=== PATIENT | female | born 1945 | race Caucasian/White ===

== ENCOUNTER → 2016-11-15 | Emergency (ER) | payer MEDICARE ==
[~2016-11-15] VITALS: Ht 165.1 cm; Wt 104.3 kg
[~2016-11-15] MED LIST: ACCUPRIL40 M1 PO; AMARYL2 MG PO; ATENOLOL50 M1 PO; ATIVAN1 MG PO; CITALOPRAM HYDR20 MG PO; COUMADIN5 M2 PO; DUONEB 3 MG/3 ML3 M1 INH; FLONASE ALLERG9.9 ML NAS; GLUCOPHAGE1000 MG PO; LASIX40 MG PO; PREDNISONE10 MG PO; REMERON15 M2 PO; ROBITUSSIN AC 110 ML PO; ZEGERID PO; ZOCOR20 MG PO
[2016-11-15 11:33] VITALS: BP 148/76
[2016-11-15 12:22] LABS: BASO # 0.1 10*3/uL (0.0-0.1); BASO % 0.5 % (0.0-1.0); EOS # 0.1 10*3/uL (0.0-0.4); EOS % 0.6 % (1.0-4.0); HEMATOCRIT 35.6 % (37.0-47.0); HEMOGLOBIN 11.7 g/dl (12.0-16.0); LYMPH # 0.9 10*3/uL (1.3-4.4); LYMPH % 8.8 % (27.0-41.0); MEAN CORPUSCULAR HGB CONC 32.9 g/dl (33.0-37.0); MEAN PLATELET VOLUME 10.1 fl (9.6-12.3); MONO # 0.7 10*3/uL (0.1-1.0); MONO % 6.5 % (3.0-9.0); NEUT # 8.7 10*3/uL (2.3-7.9); NEUT % 83.2 % (47.0-73.0); PLATELET COUNT AUTOMATED 245 10*3/uL (130-400); RED BLOOD COUNT 4.34 10*6/uL (4.10-5.10); RED CELL DISTRI WIDTH 13.1 % (0-14.5); WHITE BLOOD COUNT 10.4 10*3/uL (4.8-10.8)
[2016-11-15 12:29] LABS: INTERNATIONAL NORM RATIO 1.5 (2.0-3.5); PROTHROMBIN TIME 16.1 SECONDS (9.0-12.4)
[2016-11-15 12:46] LABS: ALBUMIN 3.4 gm/dl (3.1-4.5); ALKALINE PHOSPHATASE 80 U/L (45-117); BILIRUBIN, TOTAL 0.4 mg/dl (0.2-1.0); BUN 15 mg/dl (7-24); CARBON DIOXIDE 29 mmol/L (21-32); CHLORIDE 100 mmol/L (98-107); EST GLOM FILT AFRICAN AMERICAN > 60 ml/min; GLUCOSE 243 mg/dL (65-99); MAGNESIUM 1.3 mg/dL (1.5-2.1); POTASSIUM 3.6 mmol/L (3.5-5.1); SGOT/AST 18 IU/L (3-35); SGPT/ALT 25 U/L (12-78); SODIUM 139 mmol/L (136-145); TOTAL PROTEIN 7.9 gm/dL (6.4-8.2)
[2016-11-15 12:53] LABS: TROPONIN I < 0.015 ng/ml (<0.045)
[2016-11-15 14:18] LABS: LA>2 REFLEX 2 HR DRAW NOW
== END ==
LOC: ED 11:33
PROVIDERS: Nurse Practitioner Family
DX: J20.9 Acute bronchitis, unspecified (principal); R03.0 Elevated blood-pressure reading, without diagnosis of hypertension; Z88.1 Allergy status to other antibiotic agents; Z79.899 Other long term (current) drug therapy; Z79.02 Long term (current) use of antithrombotics/antiplatelets

== ENCOUNTER 2018-05-08 08:45 | Inpatient (IN) | payer MEDICARE ==
[2018-05-08] VITALS (8 sets, daily range): BP systolic 147–177; BP diastolic 74–103
[~2018-05-08] VITALS: Ht 165.1 cm; Wt 95.5 kg
--- NOTE | ~2018-05-08 | EKG ---
[place], [place] ELECTROCARDIOGRAM REPORT NAME: KATINA JHA UNIT #: [id number] ROOM: 532 DOCTOR: AUSTIN DRAFT REPORT BIRTHDATE: [birth year] [facility] Test Date: 2018-05-08 Test Time: 09:02:10 Pat Name: KATINA JHA Department: Room: 532 Gender: F Painter: : 1945 Requested By: LYUDMILA SPARKS Order Number: [id number] Reading MD: Itzel Polk MD Measurements Intervals Harris Rate: 92 P: KS: QRS: 46 QRSD: 95 T: 18 QT: 390 QTc: 483 Interpretive Statements Atrial fibrillation Ventricular premature complex Electronically Signed On 05-11-2018 11:08:54 PDT by Itzel Polk MD CM:EKGRPT:ELECTROCARDIOGRAM REPORT [id number] LYUDMILA AVILA DRAFT REPORT LYUDMILA SPARKS M.D.
--- NOTE | ~2018-05-08 | CON ---
[place], [place] REPORT OF CONSULTATION NAME: KATINA JHA UNIT #: [id number] ROOM: 532 DOCTOR: PHD ESTEPHANIE CARLOS BIRTHDATE: [birth year] DOS: 05/09/2018 HISTORY OF PRESENT ILLNESS: The patient is a 73-year-old female referred by the hospitalist with concerns for depression. The patient has been providing care for her brother to the detriment of her physical and emotional health. She reportedly had not been taking her medications for some time. She has a history of depression and anxiety and is prescribed Celexa and Vistaril by her primary care doctor. She has been a for the past 31 years and has 2 children. She worked as a pharmacy intake technician for many years and gave up her license 4 years ago. 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 She denied alcohol, tobacco and illegal drug use. PAST MEDICAL HISTORY: Atrial fibrillation, coronary artery disease, diabetes, GERD, hyperlipidemia, hypertension, obstructive sleep apnea. MEDICATIONS: Coumadin, Celexa, Zestril, Tenormin, Prilosec, Zocor, Humalog, Vistaril. The patient was awake, alert and oriented to person, place and time. Mood was depressed without suicidal ideation. She firmly denied a desire for , stating she has "too much to live for" with her children and grandchildren. Affect was restricted in range. She participated in counseling in the past and found that to be helpful. She is open to participating in counseling again and thinks it might be helpful to provide cognitive, behavioral and supportive therapy interventions. She stated that she does not believe her current medication regimen is working. Discussed her case with Dr. Babcock who recommended stopping Vistaril and Celexa and starting Remeron 15 mg. Discussed the patient's role as caregiver with her brother. She stated that she spoke with clinical social work aide who instructed her on how to transition her brother to a mcc, so that she is not his primary wedding makeup artist any longer. She feels at peace with this plan and believes that her mood will improve significantly once her role in the family has changed. Both of her children are supportive of her in this decision and are helping as well to transition the patient's brother to a mcc. DIAGNOSIS: Major depressive disorder, recurrent, unspecified. RECOMMENDATIONS: 1. Outpatient counseling. The patient stated she would be open to following up with me on an outpatient basis. 2. As per Dr. Babcock, stop Vistaril and Celexa and start Remeron 15 mg. Thank you very much for this consult. [place], [place] REPORT OF CONSULTATION NAME: KATINA JHA UNIT #: [id number] ROOM: 532 DOCTOR: ESTEPHANIE, PHD CARLOS BIRTHDATE: [birth year] Carmina Dhaliwal, PhD CM:CONSTR:REPORT OF CONSULTATION 1700 05/10/18 0532 interface
[~2018-05-08 08:45] MED LIST changes: +CELEXA40 MG PO; -CITALOPRAM HYDR20 MG PO; -COUMADIN5 M2 PO; +COUMADIN6 M2 PO
[2018-05-08 09:13] LABS: BASO # 0.1 10*3/uL (0.0-0.1); BASO % 0.7 % (0.0-1.0); EOS # 0.1 10*3/uL (0.0-0.4); EOS % 1.1 % (1.0-4.0); HEMATOCRIT 34.6 % (37.0-47.0); LYMPH # 1.9 10*3/uL (1.3-4.4); LYMPH % 25.2 % (27.0-41.0); MEAN CELL VOLUME 84.6 fl (81.0-99.0); MEAN CORPUSCULAR HGB 26.9 pg (27.0-31.0); MEAN CORPUSCULAR HGB CONC 31.8 g/dl (33.0-37.0); MEAN PLATELET VOLUME 10.5 fl (9.6-12.3); MONO # 0.6 10*3/uL (0.1-1.0); MONO % 7.6 % (3.0-9.0); NEUT # 4.9 10*3/uL (2.3-7.9); NEUT % 65.1 % (47.0-73.0); PLATELET COUNT AUTOMATED 268 10*3/uL (130-400); RED BLOOD COUNT 4.09 10*6/uL (4.10-5.10); RED CELL DISTRI WIDTH 13.9 % (0-14.5); WHITE BLOOD COUNT 7.5 10*3/uL (4.8-10.8)
[2018-05-08 09:25] LABS: ACT PARTIAL THROMBO TIME 26.1 SECONDS (20.8-31.5); INTERNATIONAL NORM RATIO 1.5 (2.0-3.5)
[2018-05-08 09:36] LABS: ALBUMIN 3.3 gm/dl (3.1-4.5); ALKALINE PHOSPHATASE 73 U/L (45-117); BUN 17 mg/dl (7-24); CHLORIDE 103 mmol/L (98-107); POTASSIUM 4.4 mmol/L (3.5-5.1); SGOT/AST 18 IU/L (3-35); SGPT/ALT 21 U/L (12-78); SODIUM 139 mmol/L (136-145); TOTAL PROTEIN 7.4 gm/dL (6.4-8.2)
[2018-05-08 09:37] LABS: TROPONIN I < 0.015 ng/ml (<0.045)
[2018-05-08] MEDS ORDERED: JANUVIA50 MG PO (11:46)
[2018-05-08] MEDS ORDERED: COUMADIN1 M1 PO (14:10)
[2018-05-08] MEDS ORDERED: ZEGERID 20 MG1 EACH PO (14:11)
[2018-05-08] MEDS ORDERED: PROAIR HFA8.5 GM INH (14:15)
[2018-05-08] MEDS ORDERED: HYDROXYZINE HCL25 MG PO (14:18)
[2018-05-08] MEDS ORDERED: VITAMIN D50000 UNIT PO (14:20)
[2018-05-09] VITALS: BP 150/65
[2018-05-09 06:34] LABS: BASO % 0.5 % (0.0-1.0); EOS # 0.1 10*3/uL (0.0-0.4); EOS % 1.5 % (1.0-4.0); HEMOGLOBIN 11.5 g/dl (12.0-16.0); LYMPH # 1.6 10*3/uL (1.3-4.4); LYMPH % 22.2 % (27.0-41.0); MEAN CELL VOLUME 84.9 fl (81.0-99.0); MEAN CORPUSCULAR HGB 26.4 pg (27.0-31.0); MEAN CORPUSCULAR HGB CONC 31.1 g/dl (33.0-37.0); MEAN PLATELET VOLUME 10.4 fl (9.6-12.3); MONO # 0.6 10*3/uL (0.1-1.0); MONO % 8.5 % (3.0-9.0); NEUT % 67.2 % (47.0-73.0); PLATELET COUNT AUTOMATED 262 10*3/uL (130-400); RED BLOOD COUNT 4.36 10*6/uL (4.10-5.10); RED CELL DISTRI WIDTH 13.9 % (0-14.5); WHITE BLOOD COUNT 7.4 10*3/uL (4.8-10.8)
[2018-05-09 06:48] LABS: ALBUMIN 3.4 gm/dl (3.1-4.5); ALKALINE PHOSPHATASE 74 U/L (45-117); BUN 20 mg/dl (7-24); CHLORIDE 98 mmol/L (98-107); CHOLESTEROL 167 mg/dL (<200); CREATININE 1.02 mg/dL (0.55-1.02); FREE T4 1.21 ng/dl (0.76-1.46); HDL CHOLESTEROL 36 mg/dl (40-60); LDL CHOLESTEROL 97 mg/dL (9-159); POTASSIUM 3.5 mmol/L (3.5-5.1); SGOT/AST 9 IU/L (3-35); SGPT/ALT 17 U/L (12-78); SODIUM 138 mmol/L (136-145); TOTAL PROTEIN 7.5 gm/dL (6.4-8.2); TRIGLYCERIDES 172 mg/dl (<150); VLDL CHOLESTEROL 34 mg/dL (6-40)
[2018-05-09 07:02] LABS: INTERNATIONAL NORM RATIO 1.5 (2.0-3.5)
[2018-05-09 07:23] LABS: VITAMIN D, 25-HYDROXY 48.4 ng/mL (30-100)
[2018-05-09 08:10] VITALS: BP 142/74
[2018-05-09 12:00] VITALS: BP 142/59
[2018-05-09 16:00] VITALS: BP 151/69
[2018-05-09 20:00] VITALS: BP 125/62
[2018-05-10] VITALS: BP 140/61
[2018-05-10 06:12] LABS: BASO # 0.1 10*3/uL (0.0-0.1); BASO % 0.5 % (0.0-1.0); EOS # 0.1 10*3/uL (0.0-0.4); EOS % 0.8 % (1.0-4.0); HEMATOCRIT 40.4 % (37.0-47.0); HEMOGLOBIN 12.6 g/dl (12.0-16.0); LYMPH # 2.3 10*3/uL (1.3-4.4); MEAN CELL VOLUME 85.1 fl (81.0-99.0); MEAN CORPUSCULAR HGB 26.5 pg (27.0-31.0); MEAN CORPUSCULAR HGB CONC 31.2 g/dl (33.0-37.0); MEAN PLATELET VOLUME 10.1 fl (9.6-12.3); MONO # 0.9 10*3/uL (0.1-1.0); MONO % 8.7 % (3.0-9.0); NEUT # 7.2 10*3/uL (2.3-7.9); NEUT % 67.6 % (47.0-73.0); PLATELET COUNT AUTOMATED 320 10*3/uL (130-400); RED BLOOD COUNT 4.75 10*6/uL (4.10-5.10); RED CELL DISTRI WIDTH 13.9 % (0-14.5); WHITE BLOOD COUNT 10.6 10*3/uL (4.8-10.8)
[2018-05-10 06:39] LABS: ALBUMIN 3.7 gm/dl (3.1-4.5); CREATININE 1.12 mg/dL (0.55-1.02); POTASSIUM 3.6 mmol/L (3.5-5.1)
[2018-05-10 06:41] LABS: TOTAL PROTEIN 8.3 gm/dL (6.4-8.2)
[2018-05-10 06:47] LABS: INTERNATIONAL NORM RATIO 1.4 (2.0-3.5)
[2018-05-10 08:00] VITALS: BP 150/72
[2018-05-10] MEDS ORDERED: TOPROL XL50 M1 PO (12:01)
[2018-05-10] MEDS ORDERED: MIRTAZAPINE15 M2 PO (12:01)
[2018-05-10] MEDS ORDERED: ALDACTONE25 MG PO (12:01)
== END 2018-05-10 14:39 | disposition home or self-care (01) | DRG 291 ==
LOC: ED 08:45 → EDHOLD 12:12 → 5E 12:12
PROVIDERS: Emergency Medicine; Internal Medicine
DX: I11.0 Hypertensive heart disease with heart failure (principal); J96.01 Acute respiratory failure with hypoxia; R65.10 Systemic inflammatory response syndrome (SIRS) of non-infectious origin without acute organ dysfunction; F33.9 Major depressive disorder, recurrent, unspecified; I50.33 Acute on chronic diastolic (congestive) heart failure; R79.1 Abnormal coagulation profile; R00.0 Tachycardia, unspecified; D64.9 Anemia, unspecified; D72.810 Lymphocytopenia; E78.5 Hyperlipidemia, unspecified; E11.65 Type 2 diabetes mellitus with hyperglycemia; I48.2 Chronic atrial fibrillation; I25.10 Atherosclerotic heart disease of native coronary artery without angina pectoris; F41.9 Anxiety disorder, unspecified; G47.33 Obstructive sleep apnea (adult) (pediatric); K21.9 Gastro-esophageal reflux disease without esophagitis; I34.0 Nonrheumatic mitral (valve) insufficiency; Z88.2 Allergy status to sulfonamides; Z88.8 Allergy status to other drugs, medicaments and biological substances; Z79.899 Other long term (current) drug therapy; Z90.710 Acquired absence of both cervix and uterus; Z82.49 Family history of ischemic heart disease and other diseases of the circulatory system; Z82.3 Family history of stroke; Z83.3 Family history of diabetes mellitus; Z79.01 Long term (current) use of anticoagulants; Z80.1 Family history of malignant neoplasm of trachea, bronchus and lung; Z99.81 Dependence on supplemental oxygen

== ENCOUNTER → 2018-05-14 | Outpatient (CLI) | payer MEDICARE ==
[~2018-05-14] MED LIST changes: +ALDACTONE25 MG PO; +COUMADIN1 M1 PO; +HYDROXYZINE HCL25 MG PO; +JANUVIA50 MG PO; +MIRTAZAPINE15 M2 PO; +PROAIR HFA8.5 GM INH; +TOPROL XL50 M1 PO; +VITAMIN D50000 UNIT PO; +ZEGERID 20 MG1 EACH PO
[2018-05-14 08:53] LABS: INTERNATIONAL NORM RATIO 1.9 (2.0-3.5)
== END | disposition home or self-care (01) ==
LOC: LAB 07:07
PROVIDERS: Emergency Medicine
DX: Z51.81 Encounter for therapeutic drug level monitoring (principal); Z79.01 Long term (current) use of anticoagulants

== ENCOUNTER 2020-11-05 10:14 | Observation (INO) | payer MEDICARE ==
[~2020-11-05] VITALS: Ht 165.1 cm; Wt 97.1 kg
[2020-11-05 10:23] VITALS: BP 127/47
[2020-11-05 10:51] LABS: BASO # 0.1 10*3/uL (0.0-0.1); BASO % 0.5 % (0.0-1.0); EOS # 0.1 10*3/uL (0.0-0.4); EOS % 0.5 % (1.0-4.0); HEMATOCRIT 35.6 % (37.0-47.0); LYMPH # 1.7 10*3/uL (1.3-4.4); LYMPH % 14.1 % (27.0-41.0); MEAN CELL VOLUME 81.8 fl (81.0-99.0); MEAN CORPUSCULAR HGB 25.1 pg (27.0-31.0); MEAN CORPUSCULAR HGB CONC 30.6 g/dl (33.0-37.0); MEAN PLATELET VOLUME 10.8 fl (9.6-12.3); MONO # 0.7 10*3/uL (0.1-1.0); MONO % 5.6 % (3.0-9.0); NEUT # 9.3 10*3/uL (2.3-7.9); NEUT % 79.1 % (47.0-73.0); PLATELET COUNT AUTOMATED 316 10*3/uL (130-400); RED BLOOD COUNT 4.35 10*6/uL (4.10-5.10); RED CELL DISTRI WIDTH 13.2 % (0-14.5); WHITE BLOOD COUNT 11.8 10*3/uL (4.8-10.8)
[2020-11-05 11:02] LABS: ACT PARTIAL THROMBO TIME 25.1 SECONDS (20.0-32.1)
[2020-11-05 11:06] LABS: ALBUMIN 3.5 gm/dl (3.1-4.5); ALKALINE PHOSPHATASE 82 U/L (45-117); BUN 35 mg/dl (7-24); CHLORIDE 96 mmol/L (98-107); CREATININE 1.67 mg/dL (0.55-1.02); LIPASE 214 U/L (73-393); POTASSIUM 5.3 mmol/L (3.5-5.1); SGOT/AST 8 IU/L (3-35); SGPT/ALT 17 U/L (12-78); SODIUM 130 mmol/L (136-145); TOTAL PROTEIN 8.4 gm/dL (6.4-8.2)
[2020-11-05 11:09] LABS: TROPONIN I < 0.015 ng/ml (<0.045)
[2020-11-05 11:14] LABS: BILIRUBIN Negative (Negative); BLOOD Negative (Negative); CLARITY Clear (Clear); COLOR Yellow (Yellow); GLUCOSE 3+ (Negative); KETONE Negative (Negative); LEUKO ESTERASE Negative (Negative); NITRITE Negative (Negative); SPECIFIC GRAVITY >= 1.030 (1.001-1.030); UROBILINOGEN 0.2 E.U./dl (0.0-1.0)
[2020-11-05 11:22] LABS: BACTERIA 3+
[2020-11-05 12:30] VITALS: BP 158/81
[2020-11-05] MEDS ORDERED: XARELTO20 M1 PO (13:19)
[2020-11-05] MEDS ORDERED: ATIVAN0.5 MG PO (13:20)
[2020-11-05] MEDS ORDERED: LEXAPRO10 MG PO (13:21)
[2020-11-05] MEDS ORDERED: MOBIC7.5 MG PO (13:21)
[2020-11-05] MEDS ORDERED: ASCORBIC ACID500 M2 PO (13:22)
[2020-11-05] MEDS ORDERED: ZINC50 M3 PO (13:23)
[2020-11-05 16:00] VITALS: BP 140/62
[2020-11-05 20:00] VITALS: BP 138/64
[2020-11-05 20:19] LABS: CREATININE 1.35 mg/dL (0.55-1.02); POTASSIUM 5.1 mmol/L (3.5-5.1)
[2020-11-06] VITALS: BP 120/72
[2020-11-06 05:49] LABS: ALBUMIN 2.9 gm/dl (3.1-4.5); CREATININE 1.11 mg/dL (0.55-1.02); POTASSIUM 5.3 mmol/L (3.5-5.1)
[2020-11-06 05:56] LABS: FREE T4 1.03 ng/dl (0.76-1.46); THYROID STIM HORMONE (HS) 1.42 uIU/ml (0.358-4.75); TOTAL PROTEIN 6.7 gm/dL (6.4-8.2)
[2020-11-06 06:08] LABS: BASO % 0.4 % (0.0-1.0); EOS # 0.2 10*3/uL (0.0-0.4); HEMATOCRIT 31.9 % (37.0-47.0); LYMPH % 26.9 % (27.0-41.0); MEAN CELL VOLUME 84.8 fl (81.0-99.0); MEAN CORPUSCULAR HGB CONC 29.5 g/dl (33.0-37.0); MONO # 0.8 10*3/uL (0.1-1.0); MONO % 10.1 % (3.0-9.0); NEUT # 4.4 10*3/uL (2.3-7.9); NEUT % 59.3 % (47.0-73.0); PLATELET COUNT AUTOMATED 233 10*3/uL (130-400); RED BLOOD COUNT 3.76 10*6/uL (4.10-5.10); RED CELL DISTRI WIDTH 13.3 % (0-14.5); WHITE BLOOD COUNT 7.4 10*3/uL (4.8-10.8)
[2020-11-06 07:09] LABS: VITAMIN D, 25-HYDROXY 44.8 ng/mL (30-100)
[2020-11-06 08:00] VITALS: BP 128/64
[2020-11-06 12:00] VITALS: BP 128/65
[2020-11-06 14:42] LABS: CREATININE 1.26 mg/dL (0.55-1.02); POTASSIUM 4.5 mmol/L (3.5-5.1)
[2020-11-06 16:00] VITALS: BP 135/68
[2020-11-06 20:00] VITALS: BP 130/69
[2020-11-07] VITALS: BP 123/50
[2020-11-07 06:00] LABS: BASO % 0.4 % (0.0-1.0); EOS # 0.2 10*3/uL (0.0-0.4); EOS % 2.5 % (1.0-4.0); HEMATOCRIT 32.7 % (37.0-47.0); LYMPH # 1.7 10*3/uL (1.3-4.4); LYMPH % 23.4 % (27.0-41.0); MEAN CELL VOLUME 84.5 fl (81.0-99.0); MEAN CORPUSCULAR HGB 25.3 pg (27.0-31.0); MEAN PLATELET VOLUME 10.5 fl (9.6-12.3); MONO # 0.8 10*3/uL (0.1-1.0); MONO % 10.5 % (3.0-9.0); NEUT # 4.6 10*3/uL (2.3-7.9); NEUT % 62.8 % (47.0-73.0); PLATELET COUNT AUTOMATED 234 10*3/uL (130-400); RED BLOOD COUNT 3.87 10*6/uL (4.10-5.10); RED CELL DISTRI WIDTH 13.5 % (0-14.5); WHITE BLOOD COUNT 7.3 10*3/uL (4.8-10.8)
[2020-11-07 06:28] LABS: BUN 18 mg/dl (7-24); CHLORIDE 108 mmol/L (98-107); POTASSIUM 4.4 mmol/L (3.5-5.1); SODIUM 138 mmol/L (136-145)
[2020-11-07 06:29] LABS: CREATININE 1.03 mg/dL (0.55-1.02)
[2020-11-07 08:00] VITALS: BP 120/65
[2020-11-07] MEDS ORDERED: HUMALOG100 UNIT/1 SC ×2 (11:23→12:47)
[2020-11-07] MEDS ORDERED: GLUCOPHAGE500 M1 PO (11:23)
[2020-11-07] MEDS ORDERED: LANTUS SOL100 UNIT/1 SC ×2 (11:23→12:47)
[2020-11-07] MEDS ORDERED: TOPROL XL50 M1 PO (11:27)
[2020-11-07] MEDS ORDERED: CIPRO500 MG PO (11:28)
== END 2020-11-07 12:42 | disposition home or self-care (01) ==
LOC: ED 10:14 → 4E 12:08 → EDHOLD 12:08 → 4E 12:16
PROVIDERS: Emergency Medicine; Internal Medicine; Student in an Organized Health Care Education/Training Program; ADMIT Internal Medicine; ATTEND Internal Medicine
DX: E11.65 Type 2 diabetes mellitus with hyperglycemia (principal); N17.0 Acute kidney failure with tubular necrosis; E86.0 Dehydration; E87.5 Hyperkalemia; E87.8 Other disorders of electrolyte and fluid balance, not elsewhere classified; E87.2 Acidosis; D72.9 Disorder of white blood cells, unspecified; R53.1 Weakness; E87.1 Hypo-osmolality and hyponatremia; N39.41 Urge incontinence; R35.0 Frequency of micturition; I48.21 Permanent atrial fibrillation; I50.32 Chronic diastolic (congestive) heart failure; I11.0 Hypertensive heart disease with heart failure; R00.0 Tachycardia, unspecified; D64.9 Anemia, unspecified; E83.41 Hypermagnesemia; G47.33 Obstructive sleep apnea (adult) (pediatric); R63.1 Polydipsia; I25.10 Atherosclerotic heart disease of native coronary artery without angina pectoris; Z90.710 Acquired absence of both cervix and uterus; Z95.5 Presence of coronary angioplasty implant and graft; Z98.890 Other specified postprocedural states

== ENCOUNTER → 2020-11-25 | Outpatient (CLI) | payer MEDICARE ==
[~2020-11-25] MED LIST changes: +ASCORBIC ACID500 M2 PO; +ATIVAN0.5 MG PO; +CIPRO500 MG PO; +GLUCOPHAGE500 M1 PO; +HUMALOG100 UNIT/1 SC; +LANTUS SOL100 UNIT/1 SC; +LEXAPRO10 MG PO; +MOBIC7.5 MG PO; +XARELTO20 M1 PO; +ZINC50 M3 PO
== END | disposition home or self-care (01) ==
LOC: RESCLI 01:33
PROVIDERS: ATTEND Emergency Medicine
DX: I48.21 Permanent atrial fibrillation (principal); E11.65 Type 2 diabetes mellitus with hyperglycemia; F41.9 Anxiety disorder, unspecified; I13.0 Hypertensive heart and chronic kidney disease with heart failure and stage 1 through stage 4 chronic kidney disease, or unspecified chronic kidney disease; I50.32 Chronic diastolic (congestive) heart failure; N18.31 Chronic kidney disease, stage 3a; E78.5 Hyperlipidemia, unspecified; G47.33 Obstructive sleep apnea (adult) (pediatric); M15.9 Polyosteoarthritis, unspecified; E55.9 Vitamin D deficiency, unspecified; Z79.4 Long term (current) use of insulin; Z76.89 Persons encountering health services in other specified circumstances; Z79.899 Other long term (current) drug therapy; Z90.710 Acquired absence of both cervix and uterus

== ENCOUNTER → 2020-12-25 | Outpatient (CLI) | payer MEDICARE | END | disposition home or self-care (01) | LOC: US 11:00 | PROVIDERS: ATTEND Internal Medicine Nephrology | DX: N18.31 Chronic kidney disease, stage 3a (principal); N28.89 Other specified disorders of kidney and ureter ==

== ENCOUNTER → 2021-01-01 | Outpatient (CLI) | payer MEDICARE | END | disposition home or self-care (01) | LOC: RESCLI 00:33 | PROVIDERS: ATTEND Internal Medicine | DX: I48.21 Permanent atrial fibrillation (principal); I13.0 Hypertensive heart and chronic kidney disease with heart failure and stage 1 through stage 4 chronic kidney disease, or unspecified chronic kidney disease; I50.32 Chronic diastolic (congestive) heart failure; N18.31 Chronic kidney disease, stage 3a; E11.65 Type 2 diabetes mellitus with hyperglycemia; F41.9 Anxiety disorder, unspecified; E78.5 Hyperlipidemia, unspecified; G47.33 Obstructive sleep apnea (adult) (pediatric); M15.9 Polyosteoarthritis, unspecified; E55.9 Vitamin D deficiency, unspecified; R42 Dizziness and giddiness; Z79.4 Long term (current) use of insulin; Z79.899 Other long term (current) drug therapy; Z90.710 Acquired absence of both cervix and uterus ==

== ENCOUNTER → 2021-01-26 | Outpatient (CLI) | payer MEDICARE ==
[2021-01-26 10:45] LABS: BILIRUBIN Negative (Negative); BLOOD Negative (Negative); CLARITY Clear (Clear); COLOR Yellow (Yellow); GLUCOSE 3+ (Negative); KETONE Negative (Negative); LEUKO ESTERASE Negative (Negative); NITRITE Negative (Negative); UROBILINOGEN 0.2 E.U./dl (0.0-1.0)
[2021-01-26 11:12] LABS: BACTERIA 2+; EPITHELIAL CELLS 0-2; RBC 0-2 rbc/hpf (0-2)
== END | disposition home or self-care (01) ==
LOC: LAB 10:21
PROVIDERS: ATTEND Internal Medicine
DX: R30.0 Dysuria (principal)

== ENCOUNTER → 2021-02-04 | Outpatient (CLI) | payer MEDICARE ==
[2021-02-04 11:35] LABS: ALBUMIN 3.5 gm/dl (3.1-4.5); CREATININE 1.22 mg/dL (0.55-1.02); POTASSIUM 4.3 mmol/L (3.5-5.1); TOTAL PROTEIN 8.2 gm/dL (6.4-8.2)
== END | disposition home or self-care (01) ==
LOC: RESCLI 00:57
PROVIDERS: Internal Medicine; ATTEND Internal Medicine
DX: M62.830 Muscle spasm of back (principal); I48.21 Permanent atrial fibrillation; E11.65 Type 2 diabetes mellitus with hyperglycemia; I12.9 Hypertensive chronic kidney disease with stage 1 through stage 4 chronic kidney disease, or unspecified chronic kidney disease; N18.31 Chronic kidney disease, stage 3a; F41.9 Anxiety disorder, unspecified; I50.32 Chronic diastolic (congestive) heart failure; E78.5 Hyperlipidemia, unspecified; G47.33 Obstructive sleep apnea (adult) (pediatric); M15.9 Polyosteoarthritis, unspecified; E55.9 Vitamin D deficiency, unspecified; Z79.4 Long term (current) use of insulin; Z88.8 Allergy status to other drugs, medicaments and biological substances; Z79.01 Long term (current) use of anticoagulants; Z79.899 Other long term (current) drug therapy

== ENCOUNTER 2021-08-15 11:36 | Emergency (ER) | payer MEDICARE ==
[~2021-08-15] VITALS: Ht 165.1 cm; Wt 86.2 kg
[2021-08-15 12:20] LABS: BASO % 0.4 % (0.0-1.0); EOS # 0.1 10*3/uL (0.0-0.4); EOS % 1.3 % (1.0-4.0); HEMATOCRIT 38.2 % (37.0-47.0); LYMPH # 1.7 10*3/uL (1.3-4.4); MEAN CELL VOLUME 79.3 fl (81.0-99.0); MEAN CORPUSCULAR HGB CONC 29.1 g/dl (33.0-37.0); MEAN PLATELET VOLUME 9.6 fl (9.6-12.3); MONO # 0.8 10*3/uL (0.1-1.0); MONO % 7.2 % (3.0-9.0); NEUT # 7.8 10*3/uL (2.3-7.9); NEUT % 74.8 % (47.0-73.0); PLATELET COUNT AUTOMATED 338 10*3/uL (130-400); RED BLOOD COUNT 4.82 10*6/uL (4.10-5.10); RED CELL DISTRI WIDTH 14.2 % (0-14.5); WHITE BLOOD COUNT 10.5 10*3/uL (4.8-10.8)
[2021-08-15 12:35] LABS: ACT PARTIAL THROMBO TIME 23.4 SECONDS (20.0-32.1)
[2021-08-15 12:38] LABS: ALBUMIN 3.2 gm/dl (3.1-4.5); ALKALINE PHOSPHATASE 84 U/L (45-117); BUN 17 mg/dl (7-24); CHLORIDE 109 mmol/L (98-107); CREATININE 1.06 mg/dL (0.55-1.02); POTASSIUM 4.2 mmol/L (3.5-5.1); SGOT/AST 14 IU/L (3-35); SGPT/ALT 13 U/L (12-78); SODIUM 139 mmol/L (136-145); TOTAL PROTEIN 7.8 gm/dL (6.4-8.2)
[2021-08-15] MEDS ORDERED: ZOFRAN4 MG PO (14:42)
== END 2021-08-15 18:17 | disposition home or self-care (01) ==
LOC: ED 11:36
PROVIDERS: Internal Medicine
DX: R10.13 Epigastric pain (principal); R11.0 Nausea

== ENCOUNTER → 2021-12-01 | Outpatient (CLI) | payer MEDICARE ==
[~2021-12-01] MED LIST changes: +ZOFRAN4 MG PO
== END | disposition home or self-care (01) ==
LOC: RESCLI 01:50
PROVIDERS: ATTEND Family Medicine
DX: E11.9 Type 2 diabetes mellitus without complications (principal); F41.9 Anxiety disorder, unspecified; E55.9 Vitamin D deficiency, unspecified; I10 Essential (primary) hypertension; I48.91 Unspecified atrial fibrillation; G62.9 Polyneuropathy, unspecified; Z79.899 Other long term (current) drug therapy; Z88.8 Allergy status to other drugs, medicaments and biological substances

== ENCOUNTER → 2022-12-06 | Outpatient (CLI) | payer MEDICARE | END | disposition home or self-care (01) | LOC: RESCLI 11:58 | PROVIDERS: ATTEND Internal Medicine | DX: I48.21 Permanent atrial fibrillation (principal); R00.0 Tachycardia, unspecified; F41.9 Anxiety disorder, unspecified; J06.9 Acute upper respiratory infection, unspecified; E11.65 Type 2 diabetes mellitus with hyperglycemia; E55.9 Vitamin D deficiency, unspecified; I11.0 Hypertensive heart disease with heart failure; I50.32 Chronic diastolic (congestive) heart failure; Z78.0 Asymptomatic menopausal state; G62.9 Polyneuropathy, unspecified; Z98.890 Other specified postprocedural states; Z79.01 Long term (current) use of anticoagulants; Z79.899 Other long term (current) drug therapy ==

== ENCOUNTER → 2023-03-06 | Outpatient (CLI) | payer MEDICARE ==
[~2023-03-06] MED LIST changes: +ALDACTONE25 M1 PO; +CYMBALTA60 MG PO; +DOXYCYCLINE HY100 M3 PO; +FUROSEMIDE40 MG PO; +METOPROLOL SUCC50 M1 PO; +VICTOZA 2-0.6 MG/0.1 SQ
[2023-03-06 12:29] LABS: BASO % 0.5 % (0.0-1.0); EOS # 0.1 10*3/uL (0.0-0.4); EOS % 0.8 % (1.0-4.0); HEMATOCRIT 38.9 % (37.0-47.0); LYMPH # 1.2 10*3/uL (1.3-4.4); LYMPH % 13.6 % (27.0-41.0); MEAN CELL VOLUME 82.6 fl (81.0-99.0); MEAN CORPUSCULAR HGB 24.6 pg (27.0-31.0); MEAN CORPUSCULAR HGB CONC 29.8 g/dl (33.0-37.0); MEAN PLATELET VOLUME 9.9 fl (9.6-12.3); MONO # 0.8 10*3/uL (0.1-1.0); NEUT # 6.5 10*3/uL (2.3-7.9); NEUT % 74.6 % (47.0-73.0); PLATELET COUNT AUTOMATED 257 10*3/uL (130-400); RED BLOOD COUNT 4.71 10*6/uL (4.10-5.10); RED CELL DISTRI WIDTH 15.2 % (0-14.5); WHITE BLOOD COUNT 8.8 10*3/uL (4.8-10.8)
[2023-03-06 13:48] LABS: TOTAL PROTEIN 6.9 gm/dL (6.0-8.0)
[2023-03-06 14:03] LABS: POTASSIUM 4.7 mmol/L (3.4-5.1)
== END | disposition home or self-care (01) ==
LOC: RESCLI 01:32
PROVIDERS: Student in an Organized Health Care Education/Training Program; ATTEND Internal Medicine
DX: I13.0 Hypertensive heart and chronic kidney disease with heart failure and stage 1 through stage 4 chronic kidney disease, or unspecified chronic kidney disease (principal); E11.22 Type 2 diabetes mellitus with diabetic chronic kidney disease; I50.9 Heart failure, unspecified; N18.30 Chronic kidney disease, stage 3 unspecified; E11.65 Type 2 diabetes mellitus with hyperglycemia; E78.5 Hyperlipidemia, unspecified; F41.9 Anxiety disorder, unspecified; Z98.890 Other specified postprocedural states; Z88.8 Allergy status to other drugs, medicaments and biological substances; Z79.899 Other long term (current) drug therapy

== ENCOUNTER 2023-03-13 08:15 | Inpatient (IN) | payer MEDICARE ==
[~2023-03-13] VITALS: Ht 165.1 cm; Wt 90.8 kg
[2023-03-13 08:19] VITALS: BP 151/91
[2023-03-13 08:52] LABS: BASO % 0.5 % (0.0-1.0); EOS # 0.1 10*3/uL (0.0-0.4); EOS % 0.9 % (1.0-4.0); HEMATOCRIT 36.5 % (37.0-47.0); LYMPH # 1.3 10*3/uL (1.3-4.4); LYMPH % 17.7 % (27.0-41.0); MEAN CELL VOLUME 81.5 fl (81.0-99.0); MEAN CORPUSCULAR HGB 25.2 pg (27.0-31.0); MEAN PLATELET VOLUME 10.4 fl (9.6-12.3); MONO # 0.5 10*3/uL (0.1-1.0); MONO % 7.1 % (3.0-9.0); NEUT # 5.5 10*3/uL (2.3-7.9); NEUT % 73.5 % (47.0-73.0); PLATELET COUNT AUTOMATED 219 10*3/uL (130-400); RED BLOOD COUNT 4.48 10*6/uL (4.10-5.10); RED CELL DISTRI WIDTH 16.3 % (0-14.5); WHITE BLOOD COUNT 7.5 10*3/uL (4.8-10.8)
[2023-03-13 09:02] LABS: ACT PARTIAL THROMBO TIME 25.9 SECONDS (20.0-32.1); INTERNATIONAL NORM RATIO 1.2 (2.0-3.5)
[2023-03-13 09:18] LABS: ALKALINE PHOSPHATASE 140 U/L (46-116); BUN 24 mg/dl (9-23); CHLORIDE 103 mmol/L (98-107); POTASSIUM 4.6 mmol/L (3.4-5.1); SGPT/ALT 42 U/L (10-49); TOTAL PROTEIN 6.6 gm/dL (6.0-8.0)
[2023-03-13] MEDS ORDERED: FUROSEMIDE20 M1 PO (09:50)
[2023-03-13] MEDS ORDERED: JARDIANCE25 MG PO (09:51)
[2023-03-13] MEDS ORDERED: CYMBALTA30 MG PO (09:52)
[2023-03-13] MEDS ORDERED: LISINOPRIL40 MG PO (09:53)
[2023-03-13 10:00] VITALS: BP 144/90
[2023-03-13 11:30] VITALS: BP 142/81
[2023-03-13 18:25] VITALS: BP 137/67
[2023-03-13 18:40] VITALS: BP 126/87
[2023-03-13 20:00] VITALS: BP 139/85
[2023-03-14] VITALS: BP 141/95
[2023-03-14 07:29] LABS: BASO % 0.4 % (0.0-1.0); EOS # 0.1 10*3/uL (0.0-0.4); EOS % 1.9 % (1.0-4.0); HEMATOCRIT 36.1 % (37.0-47.0); LYMPH # 1.4 10*3/uL (1.3-4.4); LYMPH % 19.3 % (27.0-41.0); MEAN CELL VOLUME 81.9 fl (81.0-99.0); MEAN CORPUSCULAR HGB 25.2 pg (27.0-31.0); MEAN CORPUSCULAR HGB CONC 30.7 g/dl (33.0-37.0); MEAN PLATELET VOLUME 10.2 fl (9.6-12.3); MONO # 0.7 10*3/uL (0.1-1.0); MONO % 9.6 % (3.0-9.0); NEUT % 68.4 % (47.0-73.0); PLATELET COUNT AUTOMATED 218 10*3/uL (130-400); RED BLOOD COUNT 4.41 10*6/uL (4.10-5.10); RED CELL DISTRI WIDTH 16.5 % (0-14.5); WHITE BLOOD COUNT 7.3 10*3/uL (4.8-10.8)
[2023-03-14 07:57] LABS: POTASSIUM 4.3 mmol/L (3.4-5.1)
[2023-03-14 08:00] VITALS: BP 120/70
[2023-03-14 12:00] VITALS: BP 141/86
[2023-03-14 16:00] VITALS: BP 121/80
[2023-03-14 20:00] VITALS: BP 143/92
[2023-03-15] VITALS: BP 127/81
[2023-03-15 07:36] LABS: BASO % 0.4 % (0.0-1.0); EOS # 0.1 10*3/uL (0.0-0.4); EOS % 1.8 % (1.0-4.0); HEMATOCRIT 36.7 % (37.0-47.0); LYMPH # 1.5 10*3/uL (1.3-4.4); LYMPH % 19.2 % (27.0-41.0); MEAN CELL VOLUME 82.5 fl (81.0-99.0); MEAN CORPUSCULAR HGB 24.9 pg (27.0-31.0); MEAN CORPUSCULAR HGB CONC 30.2 g/dl (33.0-37.0); MEAN PLATELET VOLUME 10.4 fl (9.6-12.3); MONO # 0.7 10*3/uL (0.1-1.0); MONO % 9.3 % (3.0-9.0); NEUT # 5.4 10*3/uL (2.3-7.9); PLATELET COUNT AUTOMATED 217 10*3/uL (130-400); RED BLOOD COUNT 4.45 10*6/uL (4.10-5.10); RED CELL DISTRI WIDTH 16.5 % (0-14.5); WHITE BLOOD COUNT 7.9 10*3/uL (4.8-10.8)
[2023-03-15 08:00] VITALS: BP 124/84
[2023-03-15 08:20] LABS: POTASSIUM 4.1 mmol/L (3.4-5.1)
[2023-03-15 12:00] VITALS: BP 115/65
[2023-03-15 16:00] VITALS: BP 117/71
[2023-03-15 20:00] VITALS: BP 134/84
[2023-03-16] VITALS: BP 128/80
[2023-03-16 06:26] LABS: BASO % 0.5 % (0.0-1.0); EOS # 0.1 10*3/uL (0.0-0.4); LYMPH # 1.4 10*3/uL (1.3-4.4); LYMPH % 20.9 % (27.0-41.0); MEAN CELL VOLUME 82.6 fl (81.0-99.0); MEAN CORPUSCULAR HGB 25.4 pg (27.0-31.0); MEAN CORPUSCULAR HGB CONC 30.8 g/dl (33.0-37.0); MEAN PLATELET VOLUME 10.1 fl (9.6-12.3); MONO # 0.7 10*3/uL (0.1-1.0); MONO % 10.8 % (3.0-9.0); NEUT # 4.2 10*3/uL (2.3-7.9); NEUT % 65.5 % (47.0-73.0); PLATELET COUNT AUTOMATED 231 10*3/uL (130-400); RED CELL DISTRI WIDTH 16.4 % (0-14.5); WHITE BLOOD COUNT 6.5 10*3/uL (4.8-10.8)
[2023-03-16 06:59] LABS: BUN 20 mg/dl (9-23); CHLORIDE 97 mmol/L (98-107); POTASSIUM 3.6 mmol/L (3.4-5.1)
[2023-03-16 08:00] VITALS: BP 112/90
[2023-03-16 12:00] VITALS: BP 136/74
[2023-03-16] MEDS ORDERED: ATIVAN0.5 MG PO (12:22)
[2023-03-16] MEDS ORDERED: LASIX40 MG PO (12:22)
== END 2023-03-16 13:32 | DRG 291 ==
LOC: ED 08:15 → EDHOLD 09:48 → 5E 09:48
PROVIDERS: Emergency Medicine; Student in an Organized Health Care Education/Training Program; ADMIT Student in an Organized Health Care Education/Training Program; ATTEND Student in an Organized Health Care Education/Training Program
DX: I13.0 Hypertensive heart and chronic kidney disease with heart failure and stage 1 through stage 4 chronic kidney disease, or unspecified chronic kidney disease (principal); I50.23 Acute on chronic systolic (congestive) heart failure; E44.0 Moderate protein-calorie malnutrition; I48.91 Unspecified atrial fibrillation; D64.9 Anemia, unspecified; G47.33 Obstructive sleep apnea (adult) (pediatric); F41.9 Anxiety disorder, unspecified; F32.A Depression, unspecified; M17.12 Unilateral primary osteoarthritis, left knee; E11.65 Type 2 diabetes mellitus with hyperglycemia; E66.9 Obesity, unspecified; E11.22 Type 2 diabetes mellitus with diabetic chronic kidney disease; N18.31 Chronic kidney disease, stage 3a; Z68.36 Body mass index [BMI] 36.0-36.9, adult; Z88.2 Allergy status to sulfonamides; Z88.8 Allergy status to other drugs, medicaments and biological substances; Z90.710 Acquired absence of both cervix and uterus; Z82.49 Family history of ischemic heart disease and other diseases of the circulatory system; Z80.1 Family history of malignant neoplasm of trachea, bronchus and lung; Z66 Do not resuscitate

== ENCOUNTER → 2023-04-04 | Outpatient (CLI) | payer MEDICARE ==
[~2023-04-04] MED LIST changes: +CYMBALTA30 MG PO; +FUROSEMIDE20 M1 PO; +JARDIANCE25 MG PO; +LISINOPRIL40 MG PO
== END | disposition home or self-care (01) ==
LOC: RESCLI 01:03
PROVIDERS: ATTEND Emergency Medicine
DX: I48.91 Unspecified atrial fibrillation (principal); I13.0 Hypertensive heart and chronic kidney disease with heart failure and stage 1 through stage 4 chronic kidney disease, or unspecified chronic kidney disease; E11.22 Type 2 diabetes mellitus with diabetic chronic kidney disease; N18.31 Chronic kidney disease, stage 3a; I50.9 Heart failure, unspecified; E78.5 Hyperlipidemia, unspecified; F41.9 Anxiety disorder, unspecified; Z90.710 Acquired absence of both cervix and uterus; Z98.890 Other specified postprocedural states; Z82.49 Family history of ischemic heart disease and other diseases of the circulatory system; Z79.899 Other long term (current) drug therapy

== ENCOUNTER → 2023-05-09 | Outpatient (CLI) | payer MEDICARE | END | disposition home or self-care (01) | LOC: RESCLI 00:59 | PROVIDERS: ATTEND Internal Medicine | DX: I13.0 Hypertensive heart and chronic kidney disease with heart failure and stage 1 through stage 4 chronic kidney disease, or unspecified chronic kidney disease (principal); E11.22 Type 2 diabetes mellitus with diabetic chronic kidney disease; N18.31 Chronic kidney disease, stage 3a; E11.65 Type 2 diabetes mellitus with hyperglycemia; E55.9 Vitamin D deficiency, unspecified; E78.5 Hyperlipidemia, unspecified; F41.9 Anxiety disorder, unspecified; Z88.8 Allergy status to other drugs, medicaments and biological substances; Z82.49 Family history of ischemic heart disease and other diseases of the circulatory system; Z98.890 Other specified postprocedural states; Z79.899 Other long term (current) drug therapy ==

== ENCOUNTER → 2024-05-13 | Outpatient (CLI) | payer MEDICARE ==
[2024-05-13 09:57] LABS: BASO # 0.1 10*3/uL (0.0-0.1); BASO % 0.5 % (0.0-1.0); EOS % 0.3 % (1.0-4.0); HEMATOCRIT 43.7 % (37.0-47.0); LYMPH # 1.6 10*3/uL (1.3-4.4); LYMPH % 12.8 % (27.0-41.0); MEAN CELL VOLUME 88.1 fl (81.0-99.0); MEAN CORPUSCULAR HGB CONC 31.8 g/dl (33.0-37.0); MEAN PLATELET VOLUME 10.2 fl (9.6-12.3); MONO # 0.6 10*3/uL (0.1-1.0); MONO % 4.9 % (3.0-9.0); NEUT % 81.2 % (47.0-73.0); PLATELET COUNT AUTOMATED 319 10*3/uL (130-400); RED BLOOD COUNT 4.96 10*6/uL (4.10-5.10); RED CELL DISTRI WIDTH 13.4 % (0-14.5); WHITE BLOOD COUNT 12.4 10*3/uL (4.8-10.8)
[2024-05-13 09:58] LABS: URINE CREATININE RANDOM 58.35 mg/dL
[2024-05-13 10:20] LABS: VITAMIN D, 25-HYDROXY 40.3 ng/mL (30-100)
[2024-05-13 10:21] LABS: POTASSIUM 4.3 mmol/L (3.4-5.1); TOTAL PROTEIN 7.9 gm/dL (6.0-8.0)
== END | disposition home or self-care (01) ==
LOC: RESCLI 02:58
PROVIDERS: Student in an Organized Health Care Education/Training Program; ATTEND Internal Medicine
DX: E11.65 Type 2 diabetes mellitus with hyperglycemia (principal); I48.91 Unspecified atrial fibrillation; I13.0 Hypertensive heart and chronic kidney disease with heart failure and stage 1 through stage 4 chronic kidney disease, or unspecified chronic kidney disease; I50.32 Chronic diastolic (congestive) heart failure; N18.30 Chronic kidney disease, stage 3 unspecified; I25.10 Atherosclerotic heart disease of native coronary artery without angina pectoris; E78.5 Hyperlipidemia, unspecified; F32.9 Major depressive disorder, single episode, unspecified; F41.9 Anxiety disorder, unspecified; Z88.8 Allergy status to other drugs, medicaments and biological substances; E11.40 Type 2 diabetes mellitus with diabetic neuropathy, unspecified; Z98.890 Other specified postprocedural states; Z82.49 Family history of ischemic heart disease and other diseases of the circulatory system; Z90.710 Acquired absence of both cervix and uterus; Z79.01 Long term (current) use of anticoagulants; Z79.899 Other long term (current) drug therapy; Z79.4 Long term (current) use of insulin

== ENCOUNTER → 2025-03-04 | Outpatient (CLI) | payer MEDICARE ==
[~2025-03-04] MED LIST changes: +AMMONIUM LACTA227 GM T; +ASPIRIN ADULT L81 M2 PO; +ATORVASTATIN CA40 M1 PO; +NYAMYC15 GM T; +XARE15TA PO
== END | disposition home or self-care (01) ==
LOC: CARD 12:37
PROVIDERS: ATTEND Internal Medicine Cardiovascular Disease
DX: I08.3 Combined rheumatic disorders of mitral, aortic and tricuspid valves (principal); I48.20 Chronic atrial fibrillation, unspecified; R06.02 Shortness of breath